=== PATIENT | male | born 1985 | race Caucasian/White ===

== ENCOUNTER 2018-08-06 15:55 | Emergency (ER) | payer SELFPAY ==
[2018-08-06 16:04] VITALS: BP 154/90
[2018-08-06] MEDS ORDERED: cephALEXin 250 MG CAPSULE PO STA (16:27)
--- NOTE | 2018-08-06 16:30 | ED Physician Documentation ---
PD HPI UPPER EXT INJURY - Stated complaint Stated Complaint: NAIL IN FOREARM - Chief complaint Chief Complaint: Trauma Ext - History obtained from History obtained from: Patient - History of Present Illness Location: Left, Forearm Type of injury: Puncture wound Similar symptoms before: Has not had sx before - Additonal information Additional information: The patient is a 33-year-old [id number] male who punctured his left forearm with a nail that was shot from a nail gun less than 1 hour prior to arri neto. He denies any other injuries. Tetanus status is up-to-date. Review of Systems Constitutional: denies: Fever Respiratory: denies: Dyspnea GI: denies: Nausea, Vomiting Skin: reports: Other (puncture wound) Musculoskeletal: reports: Extremity pain (left forearm) Neurologic: denies: Focal weakness, Numbness PD PAST MEDICAL HISTORY - Past Medical History Respiratory: None Endocrine/Autoimmune: None - Present Medications Home Medications: Ambulatory Orders Medication Instructions Recorded Confirmed cephALEXin [Cephalexin] 500 mg PO TID #15 tablet 08/06/18 - Allergies Allergies/Adverse Reactions: Allergies Allergy/AdvReac Type Severity Reaction Status Date / Time No Known Drug Allergies Allergy Verified 08/06/18 16:03 - Social History Does the pt smoke?: No Smoking Status: Never smoker Does the pt drink ETOH?: No PD ED PE NORMAL - Vitals Vital signs reviewed: Yes (hypertensive) - General General: Alert and oriented X 3, Well developed/nourished - HEENT HEENT: Atraumatic - Respiratory Respiratory: No respiratory distress - Derm Derm: No rash - Extremities Extremities: Other (There is a 2 3/4 inch nail protruding from the left midforearm on the volar aspect of the ulnar side. Distal neurovascular is intact.) - Neuro Neuro: Alert and oriented X 3, No motor deficit, No sensory deficit Results - Vitals Vitals: Vital Signs - 24 hr 08/06/18 15:59 Temperature 36.4 C L Heart Rate 75 Respiratory 18 Rate Blood Pressure 154/90 H O2 Saturation 99 Oxygen O2 Source Room air Procedures - FB removal FB location: Subcutaneous FB removal preparation: Local anesthesia-specify (1% lido with epi) Removal method: Other (pliers) FB removal aftercare: No complications, Patient tolerated well, Removed successfully PD MEDICAL DECISION MAKING - ED course Complexity details: re-evaluated patient, considered differential, d/w patient ED course: The patient's presentation is significant for a nail puncture wound into the left midforearm. There is soft tissue involvement only, without any indication of bony involvement. I do not think an x-ray would be of clinical benefit. Treatment in the emergency department included removal of the nail after instilling local anesthetic using 1% lidocaine with epinephrine. The wound area was thoroughly cleaned and antibiotic ointment applied. Cephalexin 500 mg was administered orally. He is being discharged with prescription for cephalexin. I discussed with him the expected course of injury, symptomatic treatment and outpatient follow-up, as well as potentially worrisome signs or symptoms that should prompt reevaluation in the Emergency Department. Departure - Departure Disposition: 01 Home, Self Care Clinical Impression: Puncture wound of forearm with foreign body Qualifiers: Encounter type: initial encounter Laterality: left Qualified Code(s): S51.842A - Puncture wound with foreign body of left forearm, initial encounter Condition: Stable Instructions: ED Wound Puncture General Follow-Up: [facility] [Provider Group] Prescriptions: cephALEXin [Cephalexin] 500 mg PO TID #15 tablet Comments: Keep the wound clean. Apply ice pack intermittently for the first 3 days. You can use ibuprofen, up to 800 mg 3 times daily for pain. Take cephalexin 3 times daily as prescribed. Let pain be your guide to activity level. Follow-up with your primary physician or return to the emergency department if you develop any sign of infection, or otherwise worsening symptoms. Discharge Date/Time: 08/06/18 16:47
== END 2018-08-06 16:47 | disposition home or self-care (01) ==
LOC: ED 15:55
DX: S51.842A Puncture wound with foreign body of left forearm, initial encounter (principal); W45.0XXA Nail entering through skin, initial encounter; W29.4XXA Contact with nail gun, initial encounter; Y93.89 Activity, other specified
CPT/HCPCS: 10120; 99283; A9270